=== PATIENT | male | born 1980 | race Caucasian/White ===

== ENCOUNTER 2017-03-12 12:46 | Observation (INO) | payer OTHER ==
[~2017-03-12] VITALS: Ht 175.3 cm; Wt 81.6 kg
[~2017-03-12 12:46] MED LIST: EPIPEN 2-P0.3 MG/0.3 IM; FISH OIL 1,3601 EACH PO; MULTIVITAMINS1 EAC9 PO; PREDNISONE10 M2 PO
[2017-03-12 13:27] LABS: ABSOLUTE BASOPHIL COUNT 0 /CUMM (0.0-0.2); ABSOLUTE EOSINOPHIL COUNT 0.2 /CUMM (0.0-0.7); ABSOLUTE GRANULOCYTE CT 4.2 /CUMM (1.4-6.5); ABSOLUTE LYMPH COUNT 3.1 /CUMM (1.2-3.4); ABSOLUTE MONOCYTE COUNT 0.5 /CUMM (0.10-0.60); BASOPHIL % 0.5 % (0.0-2.0); EOSINOPHIL % 2.3 % (0-5); GRANULOCYTE % 52.7 % (42.2-75.2); MEAN CORPUSCULAR HGB 29.3 PG (27.0-31.0); MEAN CORPUSCULAR HGB CONC 33.3 G/DL (33.0-37.0); MEAN CORPUSCULAR VOLUME 88.2 FL (80.0-94.0); MEAN PLATELET VOLUME 8.7 FL (7.4-10.4); PLATELET COUNT 331 /CUMM (130-400); RBC DISTRIBUTION WIDTH 12.1 % (11.5-14.5); RED BLOOD CELL CT 5.33 /CUMM (4.70-6.10); WHITE BLOOD CELL COUNT 8.1 /CUMM (4.8-10.8)
--- NOTE | 2017-03-12 14:50 | ED CARDIAC/CP/PALPITATIONS ---
History of Present Illness General Chief Complaint: General Adult Stated Complaint: PALPITATIONS SINCE LAST PM Source: patient Exam Limitations: no limitations Vital Signs & Intake/Output Vital Signs & Intake/Output Vital Signs Date Time Temp Pulse Resp B/P B/P Pulse O2 O2 Flow FiO2 Mean Ox Delivery Rate 03/12 1652 98.5 66 18 120/70 03/12 1645 98 03/12 1558 98.5 68 18 134/84 99 Room Air 03/12 1256 97.2 73 20 142/87 98 Room Air Allergies Coded Allergies: bee venom protein (honey bee) (Mild, CHEST TIGHTNESS, ITCHY, DYSPNEA 11/20/16) Triage Note: PT TO ED C/O FLUTTERING IN CHEST, STARTED LAST NIGHT. FELT IT THIS AM WELL, ON AND OFF THE LAST 2 HOURS. DENIES N/V. Triage Nurses Notes Reviewed? yes Onset: Abrupt Duration: day(s): (1-2), changing over time, continues in ED Timing: multiple episodes today Quality/Severity: moderate, tightness, FLUTTERING Location: substernal Radiation: no radiation Activities at Onset: none Prior Chest Pain/Card Workup: no prior chest pain, no prior cardiac workup Nitro Today/Relief: no nitro taken today Aspirin Today: no aspirin today HPI: 37-year-old male with no past medical history presents for evaluation of palpitations. Patient states that he first noticed a fluttering sensation and tightness in his chest last night for his going to bed. The symptoms lasted for approximately 15 minutes then went away completely. He noticed some again this morning again lasting for about 15 minutes. He's had multiple episodes today the last for about 15 minutes and go away completely. He is unsure if anything brings them on. He's never had this before. No dizziness or lightheadedness no shortness of breath hemoptysis or lower extremity edema. No recent surgery recent trauma. No estrogen/testosterone use. No history of blood clots. (Cyril RICHARDS,Socrates) Reconcile Medications Epinephrine (Epipen 2-Kermit) 0.3 MG/0.3 ML AUTO.INJCT 1 INJ IM ONCE PRN ANAPHYLAXIS Multiple Vitamin (Multivitamins) 1 EACH TABLET 1 TAB PO DAILY SUPPLEMENT ( Reported) (Willam CHAPPELL,Shaquille) Past History Travel History Traveled to [place] past 21 day No Medical History Any Pertinent Medical History? 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 No (Socrates Arciniega) Review of Systems Review of Systems Constitutional: Reports: no symptoms. EENTM: Reports: no symptoms. Respiratory: Reports: no symptoms. Cardiovascular: Reports: see HPI, chest pain (TIGHTNESS), palpitations. GI: Reports: no symptoms. Genitourinary: Reports: no symptoms. Musculoskeletal: Reports: no symptoms. Skin: Reports: no symptoms. Neurological/Psychological: Reports: no symptoms. Hematologic/Endocrine: Reports: no symptoms. Immunologic/Allergic: Reports: no symptoms. All Other Systems: Reviewed and Negative (Socrates Arciniega) Physical Exam Physical Exam General Appearance: well developed/nourished, no apparent distress, alert, awake Head: atraumatic, normal appearance Eyes: Bilateral: normal appearance, PERRL, EOMI. Ears, Nose, Throat: normal pharynx, normal ENT inspection, hearing grossly normal Neck: normal inspection, supple, full range of motion Respiratory: normal breath sounds, chest non-tender, no respiratory distress, lungs clear Cardiovascular: regular rate/rhythm, normal peripheral pulses Peripheral Pulses: 2+ radial (R), 2+ radial (L) Gastrointestinal: normal bowel sounds, soft, non-tender, no organomegaly Back: normal inspection, normal range of motion, no vertebral tenderness Extremities: normal inspection, normal capillary refill, no edema Neurologic/Psych: no motor/sensory deficits, awake, alert, oriented x 3, normal gait Skin: intact, normal color, warm/dry Lymphatic: no anterior cervical niraj Core Measures ACS in differential dx? No CVA/TIA Diagnosis No Sepsis Present: No Sepsis Focused Exam Completed? No (Socrates Arciniega) Progress Differential Diagnosis: AMI, atrial fibrillation, CHF/pulm edema, costochondritis, hyperkalemia, hypovolemia, hyperthyroid, musculoskeletal pain, pericarditis, pneumonia, PSVT, pulmonary embolism, PUD/GERD, PVCs/PACs, unstable angina, V-fib/V-Tach, WPW syndrome Plan of Care: Orders Procedure Date/time Status Heart Healthy Diet 03/13 B Active MAGNESIUM 03/13 0600 Active BASIC ELECTROLYTES PLUS BUN&CR 03/13 0600 Active Regular Diet 03/12 D Complete TROPONIN LEVEL 03/12 1915 Active EKG 03/12 1915 Active Vital Signs 03/12 1701 Active Teach/Educate 03/12 1701 Active Pain Treatment and Response 03/12 1701 Active Nutritional Intake, Monitor 03/12 1701 Active Isolation 03/12 1701 Active Intake & Output 03/12 1701 Active Patient Care Conference 03/12 1701 Active Activity/Ambulation 03/12 1701 Active Pathway - chart 03/12 1638 Active Pathway - chart 03/12 1635 Active House Staff 03/12 1635 Active Patient Data 03/12 1623 Active OXYGEN SETUP (GEN) 03/12 1611 Active Saline Lock 03/[address] in observation 03/12 1611 Active Vital Signs 03/12 1611 Active Activity/Ambulation 03/12 1611 Active Code Status 03/12 1611 Active URINE DRUG SCREEN FOR ER ONLY 03/12 1302 Complete TSH REFLEX 03/12 1302 Complete TROPONIN LEVEL 03/12 1302 Complete MAGNESIUM 03/12 1302 Complete COMPREHENSIVE METABOLIC PANEL 03/12 1302 Complete CBC WITHOUT DIFFERENTIAL 03/12 1302 Complete EKG 03/12 1247 Active VTE Mechanical Prophylaxis 03/12 UNK Active Vital Signs 03/12 UNK Complete Intake & Output 03/12 UNK Active Current Medications Sig/Marin Start time Last Medication Dose Stop Time Status Admin Enoxaparin Sodium 40 MG DAILY 03/13 1000 UNVr (Lovenox) Acetaminophen 650 MG Q6P PRN 03/12 1645 UNVr (Tylenol) Acetaminophen 1,000 MG Q6P PRN 03/12 1645 UNVr (Ofirmev) Laboratory Tests 03/12/17 1320: Urine Opiates Screen < 100.00, Methadone Screen < 40, Barbiturate Screen < 60, Ur Phencyclidine Scrn < 6.00, Amphetamines Screen < 100, U Benzodiazepines Scrn < 85, Urine Cocaine Screen < 50, Urine Cannabis Screen < 5.00 03/12/17 1315: Anion Gap 14, Estimated GFR > 60, BUN/Creatinine Ratio 20.0, Glucose 94, Calcium 10.2, Magnesium 1.9, Total Bilirubin 0.6, AST 33, ALT 45, Alkaline Phosphatase 89, Troponin I < 0.01, Total Protein 8.1, Albumin 5.2 H, Globulin 2.9, Albumin/ Globulin Ratio 1.8, TSH &T3 &Free T4 Intrp 1.600, CBC w Diff NO MAN DIFF REQ, RBC 5.33, MCV 88.2, MCH 29.3, MCHC 33.3, RDW 12.1, MPV 8.7, Gran % 52.7, Lymphocytes % 38.5, Monocytes % 6.0, Eosinophils % 2.3, Basophils % 0.5, Absolute Granulocytes 4.2, Absolute Lymphocytes 3.1, Absolute Monocytes 0.5, Absolute Eosinophils 0.2, Absolute Basophils 0 Patient seen and evaluated. He is reporting multiple episodes palpitations. While here in the emergency department he reports episodes palpitations and on the monitor he was throwing multiple PVCs and going into bigeminy. He reports some chest tightness during this time but no shortness of breath no hemoptysis. He is PERC negative. Negative troponin. Spoke with Dr. Grullon from cardiology. He recommended giving the patient a beta oli and admitting for observation to rule out acute coronary syndrome/arrhythmia. Patient was given 12.5 mg of metoprolol since his blood pressure and heart rate are within normal limits. Patient will stay for medication management, cardiology consult, telemetry monitoring, serial cardiac enzymes, serial EKGs. Case discussed with Dr. Baumann and he agrees. Initial ED EKG: normal sinus rhythm, pvc Rhythm Strip: PVC (Socrates Arciniega) Departure Departure Disposition: STILL A PATIENT Condition: Stable Clinical Impression Primary Impression: Palpitations Secondary Impressions: Frequent PVCs Referrals: Ronan Corona MD (PCP/Family) Departure Forms: Customer Survey General Discharge Information Observation Note Spoke With: Alfredo Ro MD Physician Advisor Notified: DEIRDRE CHAPPELL,KACIE Ann Place Patient In: Non-ED OBS Care Area Rationale for Observation: My rational for observation is as follows [telemetry monitoring, serial labs, serial EKGs, cardiology consult, monitoring of vital signs]. (Socrates Arciniega) PA/CANT GANG SAWYER Co-Sign Statement Statement: ED Attending supervision documentation- x I saw and evaluated the patient. I have also reviewed all the pertinent lab results and diagnostic results. I agree with the findings and the plan of care as documented in the PA's/CANT GANG SAWYER's documentation. Palpitations with ventricular ectopy on EKG and monitor. [] I have reviewed the ED Record and agree with the PA's/CANT GANG SAWYER's documentation. [] Additions or exceptions (if any) to the PAs/CANT GANG SAWYER's note and plan are summarized below: [] (Willam CHAPPELL,Shaquille) Critical Care Note Critical Care Note Critical Care Time: non-applicable (Socrates Arciniega)
--- NOTE | 2017-03-12 16:30 | History & Physical ---
General Information and HPI MD Statement: I have seen and personally examined KEIRY LAGUNAS and documented this H&P. The patient is a 37 year old M who presented with a patient stated chief complaint of [PALPITATION]. Source of Information: patient Exam Limitations: no limitations History of Present Illness: 37 yo M with no significant past medical history, presented to the emergency department with history of fluttering of heart since yesterday. He started noticing it yesterday, abruptly, when he resting at home, which lasted less then 5 min, and went away by itself, and was not associated with any other symptoms. This morning, he started having similar symptoms which prompted him to visit the ED. In the ED, he has been having more frequent abnor beats that he could feel, but still not other symptoms. He denied any chest pain, chest pressure, shortness of breath, fever, chills, leg swelling, sick contacts, long travel, nausea, vomiting, abdominal pain. He does not take any anticoagulation/any other medications than for his allergy. He denies taking any supplements/meds/ recreational drugs. He consumes one coffee daily in the morning, no new changes. Allergies/Medications Allergies: Coded Allergies: bee venom protein (honey bee) (Mild, CHEST TIGHTNESS, ITCHY, DYSPNEA 11/20/16) Home Med list Epinephrine (Epipen 2-Kermit) 0.3 MG/0.3 ML AUTO.INJCT 1 INJ IM ONCE PRN ANAPHYLAXIS Multiple Vitamin (Multivitamins) 1 EACH TABLET 1 TAB PO DAILY SUPPLEMENT ( Reported) Past History Travel History Traveled to [place] past 21 day No Medical History Neurological: NONE EENT: NONE Cardiovascular: NONE Respiratory: NONE Gastrointestinal: NONE Hepatic: NONE Renal: NONE Musculoskeletal: NONE Psychiatric: NONE Endocrine: NONE Blood Disorders: NONE Cancer(s): NONE 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 Home Who Do You Live With? spouse Services at Home: None Primary Language: Burmese Smoking Status: Former Smoker (<1 pack yr 15 yrs ago) ETOH Use: occasional use (1 per week) Illicit Drug Use: denies illicit drug use Functional Ability ADLs Independent: dressing, eating, toileting, bathing. Ambulation: independent IADLs Independent: shopping, housework, finances, food prep, telephone, transportation , medication admin. Review of Systems Review of Systems Constitutional: Reports: see HPI. EENTM: Reports: no symptoms. Cardiovascular: Reports: see HPI, palpitations. Denies: edema, orthopena, peripheral edema. Respiratory: Reports: no symptoms. GI: Reports: no symptoms. Genitourinary: Reports: no symptoms. Musculoskeletal: Reports: no symptoms. Skin: Reports: no symptoms. Neurological/Psychological: Reports: no symptoms. Hematologic/Endocrine: Reports: no symptoms. All Other Systems: Reviewed and Negative Exam & Diagnostic Data Last 24 Hrs of Vital Signs/I&O Vital Signs Date Time Temp Pulse Resp B/P B/P Pulse O2 O2 Flow FiO2 Mean Ox Delivery Rate 03/12 1558 98.5 68 18 134/84 99 Room Air 03/12 1256 97.2 73 20 142/87 98 Room Air Intake & Output 03/12 1600 03/12 0800 03/12 0000 Intake Total Output Total Balance Patient 81.647 kg Weight Weight Estimated Measurement Method Last 24 Hrs of Labs/Herbie: Laboratory Tests 03/12/17 1320: Urine Opiates Screen < 100.00, Methadone Screen < 40, Barbiturate Screen < 60, Ur Phencyclidine Scrn < 6.00, Amphetamines Screen < 100, U Benzodiazepines Scrn < 85, Urine Cocaine Screen < 50, Urine Cannabis Screen < 5.00 03/12/17 1315: Anion Gap 14, Estimated GFR > 60, BUN/Creatinine Ratio 20.0, Glucose 94, Calcium 10.2, Magnesium 1.9, Total Bilirubin 0.6, AST 33, ALT 45, Alkaline Phosphatase 89, Troponin I < 0.01, Total Protein 8.1, Albumin 5.2 H, Globulin 2.9, Albumin/ Globulin Ratio 1.8, TSH &T3 &Free T4 Intrp 1.600, CBC w Diff NO MAN DIFF REQ, RBC 5.33, MCV 88.2, MCH 29.3, MCHC 33.3, RDW 12.1, MPV 8.7, Gran % 52.7, Lymphocytes % 38.5, Monocytes % 6.0, Eosinophils % 2.3, Basophils % 0.5, Absolute Granulocytes 4.2, Absolute Lymphocytes 3.1, Absolute Monocytes 0.5, Absolute Eosinophils 0.2, Absolute Basophils 0 Diagnostic Data CXR Results Old chest x-ray does not show any abnormal findings in 11/21/2015. CXR not repeated today. Other Results Physical examnination: General: well nourished patient not in distress Head: Normocephalic, atraumatic Eyes: Pupils normal in size, regular, reacting to light and accommodation, EOM normal Throat/mouth: Moist mucosa Neck: Supple, full range of motion, no thyromegaly Heart: Regular rate, regular rhythm Lung: Normal breath sound bilaterally Added sound not heard Abd: Soft, non-tender, no distention appreciated Extremities: Normal knee exam bilaterally, no pedal edema, Distal neurovascular intact Neurologic: Alert, oriented x3, Cranial exam grossly intact, Speech is clear and coherent Skin: Warm and dry Psychiatric: Calm, cooperative, coherant Assessment/Plan Assessment: 37-year-old male with no past significant medical history came in with complaints of irregular heartbeats, and otherwise completely asymptomatic. He was found to have few PVCs in the EKG/telemetry in the ED, was given a low-dose of beta oli metoprolol tartrate 12.5 mg by mouth, and has been having less symptoms since then. He is planned to be observed in telemetry floor for further observation of heart rate and rhythm overnight, and if necessary for any interventions. Cardiology has been consulted, will follow recommendations. Will make sure the electrolytes are not the cause of the problem. He does not have any medications that might have caused this. And I have counseled him regarding decreasing daily caffeine intake although 1 cup per day might not be the cause of his symptoms currently. #Diet: Heart healthy #DVT ppx: SQ lovenox #Code status: Full code As Ranked By This Provider Problem List: 1. Frequent PVCs Core Measures/Misc (10/24) Acute Coronary Syndrome ACS Diagnosis: No Congestive Heart Failure Congestive Heart Failure Diagnosis No Cerebrovascular Accident CVA/TIA Diagnosis: No VTE (View Protocol) VTE Risk Factors No risk factors No Mechanical VTE Prophylaxis d/t N/A MechProphylax Ordered No VTE Pharm Prophylaxis d/t NA PharmProphylax ordered Sepsis (View protocol) Sepsis Present: No
[2017-03-12 18:12] VITALS: BP 160/100
[2017-03-12 19:22] VITALS: BP 148/92
[2017-03-12 23:37] VITALS: BP 124/96
[2017-03-13 06:38] VITALS: BP 122/78
--- NOTE | 2017-03-13 09:38 | Cons- Cardiology ---
General Information and HPI Consulting Request Date of Consult: 03/13/17 Requested By: Mega CHAPPELL,Nica Garcia History of Present Illness: This patient is a 37 year old male with history of syncope, hypertension, dyslipidemia and seizure disorder. He has a family history of premature coronary artery disease. A couple days ago this patient began feeling intermittent palpitations. They became more prominent yesterday and prompted his coming to the ER where frequent PVC's were noted that correlated with his feeling of palpitations. There is no associated neck pulsation, shortness of breath or lightheadedness. He is active at baseline and denies any chest discomfort. The patient also denies taking any medications other than a multivitamin. We did begin a beta oli with improvement in this ventricular ectopy. Allergies/Medications Allergies: Coded Allergies: bee venom protein (honey bee) (Mild, CHEST TIGHTNESS, ITCHY, DYSPNEA 11/20/16) Home Med List: Epinephrine (Epipen 2-Kermit) 0.3 MG/0.3 ML AUTO.INJCT 1 INJ IM ONCE PRN ANAPHYLAXIS Multiple Vitamin (Multivitamins) 1 EACH TABLET 1 TAB PO DAILY SUPPLEMENT ( Reported) Review of Systems Review of Systems: A review of systems is unremarkable. 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 Father: premature coronary artery disease Psychosocial History Where Do You Live? Home Who Do You Live With? spouse Services at Home: None Primary Language: Burkinan Smoking Status: Former Smoker (<1 pack yr 15 yrs ago) ETOH Use: occasional use (1 per week) Illicit Drug Use: denies illicit drug use Functional Ability ADLs Independent: dressing, eating, toileting, bathing. Ambulation: independent IADLs Independent: shopping, housework, finances, food prep, telephone, transportation , medication admin. Exam & Diagnostic Data Vital Signs and I&O Vital Signs Date Time Temp Pulse Resp B/P B/P Pulse O2 O2 Flow FiO2 Mean Ox Delivery Rate 02/04 0638 98.0 55 18 122/78 98 Room Air 03/12 2337 97.5 59 18 124/96 96 02/ 1922 148/92 02 1812 97.9 56 16 160/100 97 Room Air 03/12 1652 98.5 66 18 120/70 02/ 1645 98 03/12 1558 98.5 68 18 134/84 99 Room Air 03/12 1256 97.2 73 20 142/87 98 Room Air Intake & Output 03/13 1600 03/13 0800 03/13 0000 03/12 1600 03/12 0800 03/12 0000 Intake Total 720 Output Total Balance 720 Intake, Oral 720 Patient 180 lb 180 lb Weight Weight Estimated Measurement Method Physical Exam: General: WD/WN male in NAD; alert and oriented x 3 HEENT: NC/AT, PERRL, EOMI Neck: no JVD, no carotid bruit Heart: RRR w/o murmur Lungs: clear bilaterally ABdomen: soft, NT, +ve bowel sounds Extremities: no edema Diagnostic Data EKG Results sinus with rare PVC Assessment/Plan Assessment/Plan * This patient has frequent PVC's that are causing his palpitations. Clinically, there is a low suspicion of a low EF that would be the setting for a malignant ventricular dysrhythmia and the patient is also free of any ischemic symptoms, ECG changes or rise in cardiac enzymes. We will obtain an echocardiogram to assess his EF. * check a TSH and free T4 * Begin Metoprolol 12.5mg BID. * If the patient has a normal EF we will discharge him on Metoprolol with a plan for outpatient Holter monitor. Consult Acknowledgment - Thank you for your consult request.
[2017-03-13] MEDS ORDERED: METOPROLOL TART25 M1 PO ×2 (09:39→13:29)
--- NOTE | 2017-03-13 09:42 | Patient Discharge Instructions ---
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 Please return to emergency if symptoms worsen. Diet Continue normal diet: Yes Recommended Diet: Heart Healthy Activity Full Activity/No Limits: Yes Acute Coronary Syndrome Inclusion Criteria At DC or during hospital stay patient has or had the following: ACS DIAGNOSIS No Discharge Core Measures Meds if any: Prescribed or Continued at Discharge Meds if any: NOT Prescribed or Continued at Discharge Congestive Heart Failure Inclusion Criteria At DC or during hospital stay patient has or had the following: CHF DIAGNOSIS No Discharge Core Measures Meds if any: Prescribed or Continued at Discharge Meds if any: NOT Prescribed or Continued at Discharge Cerebrovascular accident Inclusion Criteria At DC or during hospital stay patient has or had the following: CVA/TIA Diagnosis No Discharge Core Measures Meds if any: Prescribed or Continued at Discharge Meds if any: NOT Prescribed or Continued at Discharge Venous thromboembolism Inclusion Criteria VTE Diagnosis No VTE Type NONE VTE Confirmed by (Test) NONE Discharge Core Measures - Per Current guidelines, there needs to be overlap - treatment for the first 5 days of Warfarin therapy. - If discharged on Warfarin prior to 5 days of - overlap therapy, the patient will need to be - assessed for post discharge needs including - *Post discharge parental anticoagulation - *Warfarin and/or parental anticoagulation education - *Follow up date to check INR post discharge At least 5 days overlap therapy as Inpatient No Meds if any: Prescribed or Continued at Discharge Note: Overlap Therapy is Warfarin and Anticoagulant Meds if any: NOT Prescribed or Continued at Discharge
--- NOTE | 2017-03-13 09:50 | PN-Observation ---
See Addendum Observation Note Observation Note _ I have personally examined KEIRY LAGUNAS. him disposition is uncertain at this time. Before a determination can be made, he requires continued observation for the following reasons [investigating ongoing palpitations, occasional VPCs.] . Assessment/Plan Assessment: 37-year-old male with no past significant medical history came in with complaints of irregular heartbeats, and otherwise completely asymptomatic. He was found to have few PVCs in the EKG/telemetry in the ED, was given a low-dose of beta oli metoprolol tartrate 12.5 mg by mouth, and has been having less symptoms since then. He is being observed in telemetry floor for further observation of heart rate and rhythm And overnight he has not had any episodes of palpitation. Early this morning he complained of extra beats but was not symptomatic otherwise that is no chest pain, shortness of breath, dizziness, lightheadedness. He hasn't had any PVCs overnight according to telemetry monitoring. And according to community liaison, he will get an echocardiogram later today to find any structural or functional abnormalities of the heart. He could be discharged with metoprolol tartrate 12.5 mg twice a day and follow-up with his community liaison and PCP within a week's time for further investigation. Patient has been counseled to decrease his caffeine intake, and try to note which circumstances bring about palpitations to him. #Diet: Heart healthy #DVT ppx: SQ lovenox #Code status: Full code Problem List: 1. Palpitations Subjective Follow-up For: Palpitation Complaints: no complaints Tele-Events Since Last Visit: Sinus bradycardia, sinus rhythm, heart rate ranging from 49-66, lowest was 44 when he was sleeping. Subjective: I followed up and examined the patient today. He is resting comfortably in his bed, not in any distress, does not have any complaints. He did not have any palpitations overnight, but earlier this morning he felt that he had some extra beats/palpitation. Did not have any chest pain, shortness of breath, chest pressure, dizziness at that time. No overnight events Review of Systems Constitutional: Reports: see HPI. Objective Last 24 Hrs of Vital Signs/I&O Vital Signs Date Time Temp Pulse Resp B/P B/P Pulse O2 O2 Flow FiO2 Mean Ox Delivery Rate 03/13 0638 98.0 55 18 122/78 98 Room Air 03/12 2337 97.5 59 18 124/96 96 02 1922 148/92 03/12 1812 97.9 56 16 160/100 97 Room Air 03/12 1652 98.5 66 18 120/70 02 1645 98 03/12 1558 98.5 68 18 134/84 99 Room Air 03/12 1256 97.2 73 20 142/87 98 Room Air Intake & Output 03/13 1600 03/13 0800 02 0000 Intake Total 720 Output Total Balance 720 Intake, Oral 720 Patient 81.647 kg Weight Physical Exam General Appearance: Alert, Oriented X3, Cooperative, No Acute Distress Other Physical Findings: General: well nourished patient not in distress Head: Normocephalic, atraumatic Eyes: Pupils normal in size, regular, reacting to light and accommodation, EOM normal Throat/mouth: Moist mucosa Neck: Supple, full range of motion, no thyromegaly Heart: Regular rate, regular rhythm Lung: Normal breath sound bilaterally Added sound not heard Abd: Soft, non-tender, no distention appreciated Extremities: Normal knee exam bilaterally, no pedal edema, Distal neurovascular intact Neurologic: Alert, oriented x3, Cranial exam grossly intact, Speech is clear and coherent Skin: Warm and dry Psychiatric: Calm, cooperative, coherant Current Medications: Current Medications Sig/Marin Start time Last Medication Dose Route Stop Time Status Admin Acetaminophen 650 MG Q6P PRN 03/12 1645 AC PO Acetaminophen 1,000 MG Q6P PRN 03/12 1645 AC IV Enoxaparin Sodium 40 MG DAILY 03/13 1000 AC 03/13 [place] [address]34 Metoprolol Tartrate 12.5 MG BID 03/13 1000 AC PO Metoprolol Tartrate 0 .STK-MED ONE 03/12 1652 DC PO Metoprolol Tartrate 12.5 MG ONCE ONE 03/12 1615 DC 03/12 PO 03/12 1616 1652 Last 24 Hrs of Labs/Mics: Laboratory Tests 03/13/17 0615: Anion Gap 13, Estimated GFR > 60, BUN/Creatinine Ratio 20.0, Magnesium 1.9 03/12/17 1915: Troponin I < 0.01 03/12/17 1320: Urine Opiates Screen < 100.00, Methadone Screen < 40, Barbiturate Screen < 60, Ur Phencyclidine Scrn < 6.00, Amphetamines Screen < 100, U Benzodiazepines Scrn < 85, Urine Cocaine Screen < 50, Urine Cannabis Screen < 5.00 03/12/17 1315: Anion Gap 14, Estimated GFR > 60, BUN/Creatinine Ratio 20.0, Glucose 94, Calcium 10.2, Magnesium 1.9, Total Bilirubin 0.6, AST 33, ALT 45, Alkaline Phosphatase 89, Troponin I < 0.01, Total Protein 8.1, Albumin 5.2 H, Globulin 2.9, Albumin/ Globulin Ratio 1.8, TSH &T3 &Free T4 Intrp 1.600, CBC w Diff NO MAN DIFF REQ, RBC 5.33, MCV 88.2, MCH 29.3, MCHC 33.3, RDW 12.1, MPV 8.7, Gran % 52.7, Lymphocytes % 38.5, Monocytes % 6.0, Eosinophils % 2.3, Basophils % 0.5, Absolute Granulocytes 4.2, Absolute Lymphocytes 3.1, Absolute Monocytes 0.5, Absolute Eosinophils 0.2, Absolute Basophils 0
--- NOTE | 2017-03-13 12:59 | ECHOCARDIOGRAM REPORT ---
KEIRY LAGUNAS Age: 37 : 1980 Gender: M Exam Date: 03/13/2017 10:52 Exam Location: [address] Ht (in): 69 Wt (lb): 180 BSA: 2.01 BP: 122 / 78 Ordering Physician: SARAHY JOYNER MD Referring Physician: Vin Grullon MD, PhD Technologist: Nohelia Gentile [facility] Room Number: [id number] Indications: FREQUENT PVCs Rhythm: Sinus Technical Quality: good FINDINGS Left Ventricle Normal left ventricular size, wall thickness and systolic function with no obvious regional wall motion abnormalities. Normal left ventricular diastolic filling pattern for age. The ejection fraction is visually estimated at 60%. Right Ventricle The right ventricle is normal in size and function. Right Atrium The right atrium is normal in size. Left Atrium The left atrium is normal in size. The interatrial septum is intact. Mitral Valve The mitral valve is normal in structure and function. There is mild mitral regurgitation. Aortic Valve Structurally normal aortic valve without significant sclerosis or stenosis. There is no aortic regurgitation. Tricuspid Valve The tricuspid valve is normal in structure and function. There is mild tricuspid regurgitation. Pulmonary artery systolic pressure is normal. Pulmonic Valve Structurally normal pulmonic valve. There is trace pulmonic regurgitation. Pericardium Normal pericardium without effusion. No pleural effusion. Great Vessels Normal aortic root dimension. The aortic arch and great vessels are well seen and are normal. CONCLUSIONS 1. Normal EF of 60%. 2. Mild mitral regurgitation. 3. Mild tricuspid regurgitation. 4. Trace pulmonic regurgitation. Vin Grullon M.D. (Electronically Signed) Final Date: 13 March 2017 12:58 MEASUREMENTS (Male / Female) Normal Values 2D ECHO LV Diastolic Diameter PLAX 4.2 cm 4.2 - 5.9 / 3.9 - 5.3 cm LV Systolic Diameter PLAX 2.5 cm 2.1 - 4.0 cm LV Fractional Shortening PLAX 40.5 % 25 - 46 % LV Ejection Fraction 2D Teich 71.6 % IVS Diastolic Thickness 1.1 cm LVPW Diastolic Thickness 1.2 cm LV Relative Wall Thickness 0.5 RV Internal Dim ED PLAX 2.6 cm 1.9 - 3.8 cm LVOT Diameter 2.1 cm Aortic Root Diameter 2.8 cm LA Systolic Diameter LX 3.3 cm 3.0 - 4.0 / 2.7 - 3.8 cm LA Volume 23.0 cm 18 - 58 / 22 - 52 cm Ascending Aorta Diameter 2.7 cm DOPPLER AV Peak Velocity 125.0 cm/s AV Peak Gradient 6.3 mmHg AV Mean Velocity 78.3 cm/s AV Mean Gradient 3.0 mmHg AV Velocity Time Integral 30.2 cm LVOT Peak Velocity 108.0 cm/s LVOT Peak Gradient 4.7 mmHg LVOT Mean Velocity 73.8 cm/s LVOT Mean Gradient 3.0 mmHg LVOT Velocity Time Integral 24.4 cm LVOT Stroke Volume 84.5 cm AV Area Cont Eq vti 2.8 cm AV Area Cont Eq pk 3.0 cm MV Peak Velocity 86.8 cm/s MV Peak Gradient 3.0 mmHg MV Mean Velocity 41.7 cm/s MV Mean Gradient 1.0 mmHg Mitral E Point Velocity 70.3 cm/s Mitral A Point Velocity 41.5 cm/s Mitral E to A Ratio 1.7 MV PHT Velocity 90.2 cm/s MV Deceleration [place] 424.0 cm/s MV Pressure Half Time 63.8 ms MV Area PHT 3.4 cm MV Deceleration Time 232.0 ms TR Peak Velocity 229.0 cm/s TR Peak Gradient 21.0 mmHg Right Atrial Pressure 5.0 mmHg Pulmonary Artery Systolic Pressu 26.0 mmHg Right Ventricular Systolic Press 26.0 mmHg PV Peak Velocity 110.0 cm/s PV Peak Gradient 4.8 mmHg PV Mean Velocity 78.2 cm/s PV Mean Gradient 3.0 mmHg PV Velocity Time Integral 26.4 cm LV E' Lateral Velocity 16.2 cm/s Mitral E to LV E' Lateral Ratio 4.3 LV E' Septal Velocity 8.6 cm/s Mitral E to LV E' Septal Ratio 8.2
--- NOTE | 2017-03-13 13:24 | PN- Att Addend ---
Attending Addendum Attending Brief Note 37-year-old white male active on no medications and has had palpitations for a few days getting worse the day of admission for observation. When he came to the emergency room the original EKG showed only a few premature ventricular contractions. Later on the monitor started having more extra beats he could feel them on that he was started on a beta oli that improved his symptoms considerably. Overnight occasionally he could feel an extra beat the same this morning he was evaluated by cardiology Dr. Grullon. His troponins have been negative, but hasn't had any chest pain patient had an echocardiogram, if there is no abnormalities could be able to go home but he also had his thyroid functions checked 24 TOTALS 03/13 0000 03/12 0000 Intake Total 720 Output Total Balance 720 Intake, Oral 720 Patient 180 lb Weight Weight Estimated Measurement Method Current Medications Sig/Marin Start time Last Medication Dose Route Stop Time Status Admin Acetaminophen 650 MG Q6P PRN 03/12 1645 AC PO Acetaminophen 1,000 MG Q6P PRN 03/12 1645 AC IV Enoxaparin Sodium 40 MG DAILY 03/13 1000 AC 03/13 SC 0934 Metoprolol Tartrate 12.5 MG BID 03/13 1000 AC 03/13 PO 1204 Metoprolol Tartrate 0 .STK-MED ONE 03/12 1652 DC PO Metoprolol Tartrate 12.5 MG ONCE ONE 03/12 1615 DC 03/12 PO 03/12 1616 1652 Laboratory Tests 03/13/17 0615: Anion Gap 13, Estimated GFR > 60, BUN/Creatinine Ratio 20.0, Magnesium 1.9 03/12/17 1915: Troponin I < 0.01 03/12/17 1320: Urine Opiates Screen < 100.00, Methadone Screen < 40, Barbiturate Screen < 60, Ur Phencyclidine Scrn < 6.00, Amphetamines Screen < 100, U Benzodiazepines Scrn < 85, Urine Cocaine Screen < 50, Urine Cannabis Screen < 5.00 03/12/17 1315: Anion Gap 14, Estimated GFR > 60, BUN/Creatinine Ratio 20.0, Glucose 94, Calcium 10.2, Magnesium 1.9, Total Bilirubin 0.6, AST 33, ALT 45, Alkaline Phosphatase 89, Troponin I < 0.01, Total Protein 8.1, Albumin 5.2 H, Globulin 2.9, Albumin/ Globulin Ratio 1.8, TSH &T3 &Free T4 Intrp 1.600, CBC w Diff NO MAN DIFF REQ, RBC 5.33, MCV 88.2, MCH 29.3, MCHC 33.3, RDW 12.1, MPV 8.7, Gran % 52.7, Lymphocytes % 38.5, Monocytes % 6.0, Eosinophils % 2.3, Basophils % 0.5, Absolute Granulocytes 4.2, Absolute Lymphocytes 3.1, Absolute Monocytes 0.5, Absolute Eosinophils 0.2, Absolute Basophils 0 Vital Signs Date Time Temp Pulse Resp B/P B/P Pulse O2 O2 Flow FiO2 Mean Ox Delivery Rate 03/13 0638 98.0 55 18 122/78 98 Room Air 03/12 2337 97.5 59 18 124/96 96 03/12 1922 148/92 02 1812 97.9 56 16 160/100 97 Room Air 03/12 1652 98.5 66 18 120/70 02 1645 98 / 1558 98.5 68 18 134/84 99 Room Air
== END 2017-03-13 14:45 ==
LOC: ERH 12:46 → 1NO 16:11 → ERHI 16:11 → ENRESERV 16:55 → ENTRNSPT 17:09 → 1NO 18:00 → EDTRNSPTSTS 18:09 → EDTRNSPT 18:09 → CMPTRNSPT 18:16 → ENPENDDIS 03-13 13:28 → 1NO 03-13 14:45
PROVIDERS: Physician Assistant Medical
DX: R00.2 Palpitations (principal); I49.3 Ventricular premature depolarization; Z87.891 Personal history of nicotine dependence; I10 Essential (primary) hypertension; E78.5 Hyperlipidemia, unspecified; R56.9 Unspecified convulsions
CPT/HCPCS: 6020; 36415; 80307; 82436; 93005; 93010; 93306; 96372; G0378; J0131; J1650